=== PATIENT | male | born 1965 | race Caucasian/White ===

== ENCOUNTER 2018-01-06 22:47 | Inpatient (IN) | payer MEDICARE ==
[2018-01-06] MEDS ORDERED: Tetanus/Diphtheria Toxoids 0.5 ml Syringe IM ONE ×2 (23:38→23:44)
[2018-01-07] MEDS ORDERED: Vancomycin 1 gm/NS 200 ml 1 GM/200 ML BAG IVPB STA (00:53)
[2018-01-07 01:03] LABS: BASO % 0.6 % (0.0-2.0); EOS # 0.1 K/uL (0.0-0.7); EOS % 0.8 % (0.0-4.0); HEMOGLOBIN 13.5 g/dL (12.0-18.0); LYMPH # 1.2 K/uL (1.0-4.3); LYMPH % 19.5 % (20.0-40.0); MEAN CELL VOLUME 81.4 fL (80.0-94.0); MEAN CORPUSCULAR HEMOGLOBIN 27.8 pg (27.0-31.0); MEAN CORPUSCULAR HGB CONC 34.1 g/dL (33.0-37.0); MEAN PLATELET VOLUME 8.6 fL (7.2-11.7); MONO # 0.5 K/uL (0.0-0.8); MONO % 7.9 % (0.0-10.0); NEUT # 4.3 K/uL (1.8-7.0); NEUT % 71.2 % (50.0-75.0); RBC 4.85 Mil/uL (4.40-5.90); RED CELL DISTRIBUTION WIDTH 13.5 % (11.5-14.5)
[2018-01-07 01:12] LABS: ALBUMIN 4.3 g/dL (3.5-5.0); ALT/SGPT 34 U/L (21-72); AMYLASE 74 U/L (30-110); AST/SGOT 31 U/L (17-59); BLOOD UREA NITROGEN 16 mg/dL (9-20); CALCIUM 9.3 mg/dl (8.6-10.4); GFR AFRICAN-AMERICAN > 60; GFR NON-AFRICAN AMERICAN > 60; LIPASE 65 U/L (23-300)
[2018-01-07 01:55] LABS: BARBITURATES, UR NEGATIVE (NEGATIVE); BENZODIAZEPINES, UR NEGATIVE (NEGATIVE); OPIATES, UR NEGATIVE (NEGATIVE); PHENCYCLIDINE, UR NEGATIVE (NEGATIVE)
[2018-01-07 02:05] LABS: URINE BILIRUBIN NEGATIVE (NEGATIVE); URINE BLOOD NEGATIVE (NEGATIVE); URINE CLARITY Clear (Clear); URINE COLOR Yellow (YELLOW); URINE GLUCOSE (UA) NORMAL (Normal); URINE LEUKOCYTE ESTERASE NEG Leu/uL (Negative); URINE PROTEIN NEGATIVE (NEGATIVE); URINE UROBILINOGEN NORMAL mg/dL (0.2-1.0)
--- NOTE | 2018-01-07 02:09 | C.PDOC ---
History Of Present Illness Patient c/o right hand pain and swelling after he accidentally got a wooden splinter in his right hand that he was able to remove by pulling. However next day he developed pain and swelling that are getting worse. Patient has h/o HIV, currently has no PMD and is not on any treatment. Time Seen by Provider: 01/06/18 23:31 Chief Complaint (Nursing): Finger,Hand,&Wrist History Per: Patient Onset/Duration Of Symptoms: Days (3-4) Quality: Aching Pain Scale Rating Of: 5 Hands/Wrist (Pic): 1 - pain, swelling and erythema, mostly on the right 5th finger proximal phalanx 2 - swelling Past Medical History Reviewed: Historical Data, Nursing Documentation, Vital Signs Vital Signs: Last Vital Signs Temp 97.7 F 01/06/18 23:20 Pulse 93 H 01/06/18 23:20 Resp 18 01/06/18 23:20 BP 129/76 01/06/18 23:20 Pulse Ox 97 01/07/18 02:38 - Medical History PMH: Fractures, HIV Denies: Chronic Kidney Disease Family History: States: Unknown Family Hx - Social History Hx Tobacco Use: Yes Hx Alcohol Use: Yes Hx Substance Use: No - Immunization History Hx Tetanus Toxoid Vaccination: No Hx Influenza Vaccination: No Hx Pneumococcal Vaccination: No Review Of Systems Except As Marked, All Systems Reviewed And Found Negative. Physical Exam - Physical Exam Appears: Well, Non-toxic, No Acute Distress Skin: Normal Color, Warm, No Diaphoretic Head: Atraumatic, Normacephalic Eye(s): bilateral: Normal Inspection Neck: Normal, Normal ROM Cardiovascular: Rhythm Regular Respiratory: Normal Breath Sounds Gastrointestinal/Abdominal: Soft, No Tenderness Extremity: Swelling (right hand, proximal 5th finger, puncture wound palmar web between 4th and 5th digits, erythema, spreads proximally to the R hand area, decreased bending to the right 5th finger) Neurological/Psych: Oriented x3, Normal Speech, Normal Cognition ED Course And Treatment - Laboratory Results Result Diagrams: 01/07/18 00:54 01/07/18 00:54 O2 Sat by Pulse Oximetry: 97 - Radiology CXR: Interpreted by Me CXR Interpretation: Yes: No Acute Disease - Other Rad Right hand xray X-Ray: Interpreted by Me Interpretation: No acute finding Progress Note: Vancomycin IV started. TD IM given. Case was d/w Hospitalist workers compensation claims examiner Dr. Celso Gloria who accepted patient to [place] for an admission and IV antibiotics. Disposition - Disposition Disposition Time: 02:36 Condition: FAIR - Clinical Impression Clinical Impression: Cellulitis of hand, HIV (human immunodeficiency virus infection) Decision To Admit - Pt Status Changed To: Hospital Disposition Of: Inpatient - Admit Certification Admit to Inpatient:: After my assessment, the patient will require hospitalization for at least two midnights. This is because of the severity of symptoms shown, intensity of services needed, and/or the medical risk in this patient being treated as an outpatient. - InPatient: Physician Admission Certification: I certify that this patient requires 2 or more midnights of care for the following reason:: Patient will need more than 2 days of IV antibiotics. - . Bed Request Type: Regular Admitting Physician: Celso Gloria Patient Diagnosis: Cellulitis of hand, HIV (human immunodeficiency virus infection)
[2018-01-07] MEDS ORDERED: Piperacillin/Tazobact 3.375 GM in Sodium Chloride 100 ML IVPB SCH (03:45)
--- NOTE | 2018-01-07 03:46 | CP.PCM.HP ---
<JeanniedarrionYolande HeavenRolly - Last Filed: 01/07/18 03:39> History of Present Illness - History of Present Illness History of Present Illness: HPI: Patient is a 52 year old male with a history of HIV and schizophrenia, who presents to the ED with right hand swelling. Patient reports he had a splinter in his left hand 2 days ago. He pulled the splinter out and had slight pain and erythema at the splinter site. Patient says that after using a hammer yesterday , his hand began to swell and the pain at the splinter site increased. He describes the pain as sharp and stabbing. Patient states he has limited motion of his hand and fingers due to the pain and swelling. Patient states he has chronic back pain and a chronic nonproductive cough. Patient denies chest pain, shortness of breath, abdominal pain, n/v, fevers, chills, headaches, dizziness, diarrhea, constipation, rashes, leg pain/swelling. 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 Allergies: NKDA Medications: none Present on Admission - Present on Admission Any Indicators Present on Admission: No Review of Systems - Constitutional Constitutional: absent: Chills, Fever, Headache, Weakness - EENT Eyes: absent: Change in Vision Ears: absent: Dizziness - Cardiovascular Cardiovascular: absent: Chest Pain, Dyspnea, Leg Edema, Palpitations - Respiratory Respiratory: Cough (chronic). absent: Dyspnea - Gastrointestinal Gastrointestinal: absent: Abdominal Pain, Constipation, Diarrhea, Nausea, Vomiting - Genitourinary Genitourinary: absent: Dysuria, Hematuria, Urinary Frequency - Musculoskeletal Musculoskeletal: Back Pain (Chronic) - Integumentary Integumentary: Swelling (right hand- swelling, erythema, decreased ROM 2/2 pain ; ) - Neurological Neurological: absent: Dizziness, Headaches - Psychiatric Psychiatric: absent: Auditory Hallucinations, Hallucinations, Homicidal Ideation , Suicidal Ideation, Visual Hallucinations - Endocrine Endocrine: absent: Palpitations Past Patient History - Infectious Disease Hx of Infectious Diseases: None - Past Medical History & Family History Past Medical History?: Yes - Past Social History Smoking Status: Heavy Smoker > 10 Cigarettes Daily - CARDIAC Hx Cardiac Disorders: No - PULMONARY Hx Respiratory Disorders: No - NEUROLOGICAL Hx Neurological Disorder: No - HEENT Hx HEENT Problems: No - RENAL Hx Chronic Kidney Disease: No - ENDOCRINE/METABOLIC Hx Endocrine Disorders: No - HEMATOLOGICAL/ONCOLOGICAL Hx Blood Disorders: Yes Hx Human Immunodeficiency Virus (HIV): Yes - INTEGUMENTARY Hx Dermatological Problems: No - MUSCULOSKELETAL/RHEUMATOLOGICAL Hx Musculoskeletal Disorders: Yes Hx Fractures: Yes - GASTROINTESTINAL Hx Gastrointestinal Disorders: No - GENITOURINARY/GYNECOLOGICAL Hx Genitourinary Disorders: No - PSYCHIATRIC Hx Psychophysiologic Disorder: No Hx Substance Use: No - SURGICAL HISTORY Hx Surgeries: No - ANESTHESIA Hx Anesthesia: No Hx Anesthesia Reactions: No Hx Malignant Hyperthermia: No Has any member of the family had a problem w/ anesthesia?: No Meds Allergies/Adverse Reactions: Allergies Allergy/AdvReac Type Severity Reaction Status Date / Time No Known Allergies Allergy Verified 01/06/18 23:22 Physical Exam - Constitutional Appears: No Acute Distress - Head Exam Head Exam: ATRAUMATIC, NORMAL INSPECTION - Eye Exam Eye Exam: EOMI. absent: Scleral icterus Pupil Exam: Miosis - ENT Exam ENT Exam: Mucous Membranes Moist - Respiratory Exam Respiratory Exam: Prolonged Expiratory Phase, Wheezes (mild, diffuse), NORMAL BREATHING PATTERN. absent: Respiratory Distress - Cardiovascular Exam Cardiovascular Exam: REGULAR RHYTHM, +S1, +S2 - GI/Abdominal Exam GI & Abdominal Exam: Normal Bowel Sounds, Soft. absent: Distended, Firm, Tenderness - Extremities Exam Extremities exam: Positive for: tenderness (right hand- medial dorsal and palmar erythema, swelling, tenderness w/palpation, decreased ROM 2/2 pain), pedal pulses present. Negative for: pedal edema - Neurological Exam Neurological exam: Alert, Oriented x3 - Psychiatric Exam Psychiatric exam: Normal Affect, Normal Mood - Skin Skin Exam: Dry, Intact, Warm Results - Vital Signs Recent Vital Signs: Last Vital Signs Temp 98.6 F 01/07/18 03:15 Pulse 66 01/07/18 03:15 Resp 18 01/07/18 03:15 BP 125/59 L 01/07/18 03:15 Pulse Ox 98 01/07/18 03:15 - Labs Result Diagrams: 01/07/18 00:54 01/07/18 00:54 Labs: Laboratory Results - last 24 hr 01/07/18 01/07/18 01/07/18 00:54 00:54 01:35 WBC 6.0 RBC 4.85 Hgb 13.5 Hct 39.5 MCV 81.4 MCH 27.8 MCHC 34.1 RDW 13.5 Plt Count 82 L D MPV 8.6 Neut % (Auto) 71.2 Lymph % (Auto) 19.5 L [place] % (Auto) 7.9 Eos % (Auto) 0.8 Baso % (Auto) 0.6 Neut # (Auto) 4.3 Lymph # (Auto) 1.2 [place] # (Auto) 0.5 Eos # (Auto) 0.1 Baso # (Auto) 0.0 Sodium 145 Potassium 3.8 Chloride 106 Carbon Dioxide 26 Anion Gap 17 BUN 16 Creatinine 1.1 Est GFR ( Amer) > 60 Est GFR (Non-Af Amer) > 60 Random Glucose 84 Calcium 9.3 Magnesium 2.1 Total Bilirubin 1.0 AST 31 ALT 34 Alkaline Phosphatase 60 Lactate Dehydrogenase 487 Total Protein 8.6 H Albumin 4.3 Globulin 4.2 H Albumin/Globulin Ratio 1.0 Amylase 74 Lipase 65 Urine Color Yellow Urine Clarity Clear Urine pH 5.0 Ur Specific [place] 1.030 Urine Protein Negative Urine Glucose (UA) Normal Urine Ketones Negative Urine Blood Negative Urine Nitrate Negative Urine Bilirubin Negative Urine Urobilinogen Normal Ur Leukocyte Esterase Neg Urine WBC (Auto) 1 Urine RBC (Auto) < 1 Urine Opiates Screen Urine Methadone Screen Ur Barbiturates Screen Ur Phencyclidine Scrn Ur Amphetamines Screen U Benzodiazepines Scrn U Oth Cocaine Metabols U Cannabinoids Screen 01/07/18 01:35 WBC RBC Hgb Hct MCV MCH MCHC RDW Plt Count MPV Neut % (Auto) Lymph % (Auto) [place] % (Auto) Eos % (Auto) Baso % (Auto) Neut # (Auto) Lymph # (Auto) [place] # (Auto) Eos # (Auto) Baso # (Auto) Sodium Potassium Chloride Carbon Dioxide Anion Gap BUN Creatinine Est GFR ( Amer) Est GFR (Non-Af Amer) Random Glucose Calcium Magnesium Total Bilirubin AST ALT Alkaline Phosphatase Lactate Dehydrogenase Total Protein Albumin Globulin Albumin/Globulin Ratio Amylase Lipase Urine Color Urine Clarity Urine pH Ur Specific [place] Urine Protein Urine Glucose (UA) Urine Ketones Urine Blood Urine Nitrate Urine Bilirubin Urine Urobilinogen Ur Leukocyte Esterase Urine WBC (Auto) Urine RBC (Auto) Urine Opiates Screen Negative Urine Methadone Screen Negative Ur Barbiturates Screen Negative Ur Phencyclidine Scrn Negative Ur Amphetamines Screen Negative U Benzodiazepines Scrn Negative U Oth Cocaine Metabols Positive H U Cannabinoids Screen Negative Assessment & Plan (1) Cellulitis of hand Assessment and Plan: Right hand cellulitis Hand xray: f/u results Blood cx: f/u results In Ed: given one dose of toradol, vancomycin 1gm IV, tetanus vaccination Zosyn 3.375gm IV Q6h (active 01/07/18) Vancomycin 1gm IV Q24h (active 01/08/18) Tylenol PRN for mild pain, Toradol 15mg IV prn for moderate pain NS@75mls/hr Status: Acute (2) HIV (human immunodeficiency virus infection) Assessment and Plan: Hx of HIV (dx in 1991); no previous treatment; previously followed in an HIV clinic, stopped going many years ago. Viral load: f/u results Lymphocyte: f/u results Status: Acute (3) Schizophrenia Assessment and Plan: Hx of schizophrenia. No treatment/medications taken at this time because patient states they make him drowsy. Does not have a PMD or psychiatrist. States his auditory hallucinations are controlled when he stays busy; patient does not like to talk about his schizophrenia; patient has auditory hallucinations ~Q 2 weeks. Status: Acute (4) Tobacco abuse Assessment and Plan: Nicoderm patch Status: Acute (5) Prophylactic measure Assessment and Plan: DVT: SCDs, chemical anticoagulation C/I due to thrombocytopenia GI: Pepcid Regular diet Status: Acute <Celso Gloria - Last Filed: 01/07/18 06:28> Results - Vital Signs Recent Vital Signs: Last Vital Signs Temp 98.4 F 01/07/18 04:00 Pulse 75 01/07/18 04:00 Resp 18 01/07/18 04:00 BP 128/70 01/07/18 04:00 Pulse Ox 97 01/07/18 04:00 - Labs Result Diagrams: 01/07/18 00:54 01/07/18 00:54 Labs: Laboratory Results - last 24 hr 01/07/18 01/07/18 01/07/18 00:54 00:54 01:35 WBC 6.0 RBC 4.85 Hgb 13.5 Hct 39.5 MCV 81.4 MCH 27.8 MCHC 34.1 RDW 13.5 Plt Count 82 L D MPV 8.6 Neut % (Auto) 71.2 Lymph % (Auto) 19.5 L [place] % (Auto) 7.9 Eos % (Auto) 0.8 Baso % (Auto) 0.6 Neut # (Auto) 4.3 Lymph # (Auto) 1.2 [place] # (Auto) 0.5 Eos # (Auto) 0.1 Baso # (Auto) 0.0 Differential Comment Sodium 145 Potassium 3.8 Chloride 106 Carbon Dioxide 26 Anion Gap 17 BUN 16 Creatinine 1.1 Est GFR ( Amer) > 60 Est GFR (Non-Af Amer) > 60 Random Glucose 84 Calcium 9.3 Magnesium 2.1 Total Bilirubin 1.0 AST 31 ALT 34 Alkaline Phosphatase 60 Lactate Dehydrogenase 487 Total Protein 8.6 H Albumin 4.3 Globulin 4.2 H Albumin/Globulin Ratio 1.0 Amylase 74 Lipase 65 Urine Color Yellow Urine Clarity Clear Urine pH 5.0 Ur Specific [place] 1.030 Urine Protein Negative Urine Glucose (UA) Normal Urine Ketones Negative Urine Blood Negative Urine Nitrate Negative Urine Bilirubin Negative Urine Urobilinogen Normal Ur Leukocyte Esterase Neg Urine WBC (Auto) 1 Urine RBC (Auto) < 1 Urine Opiates Screen Urine Methadone Screen Ur Barbiturates Screen Ur Phencyclidine Scrn Ur Amphetamines Screen U Benzodiazepines Scrn U Oth Cocaine Metabols U Cannabinoids Screen 01/07/18 01:35 WBC RBC Hgb Hct MCV MCH MCHC RDW Plt Count MPV Neut % (Auto) Lymph % (Auto) [place] % (Auto) Eos % (Auto) Baso % (Auto) Neut # (Auto) Lymph # (Auto) [place] # (Auto) Eos # (Auto) Baso # (Auto) Differential Comment Sodium Potassium Chloride Carbon Dioxide Anion Gap BUN Creatinine Est GFR ( Amer) Est GFR (Non-Af Amer) Random Glucose Calcium Magnesium Total Bilirubin AST ALT Alkaline Phosphatase Lactate Dehydrogenase Total Protein Albumin Globulin Albumin/Globulin Ratio Amylase Lipase Urine Color Urine Clarity Urine pH Ur Specific [place] Urine Protein Urine Glucose (UA) Urine Ketones Urine Blood Urine Nitrate Urine Bilirubin Urine Urobilinogen Ur Leukocyte Esterase Urine WBC (Auto) Urine RBC (Auto) Urine Opiates Screen Negative Urine Methadone Screen Negative Ur Barbiturates Screen Negative Ur Phencyclidine Scrn Negative Ur Amphetamines Screen Negative U Benzodiazepines Scrn Negative U Oth Cocaine Metabols Positive H U Cannabinoids Screen Negative Assessment & Plan - Date & Time Date: 01/07/18 (I have seen and examined the patient. I agree with the findings and plan of care as documented by Dr. Collins. Patient with cellulitis of right hand. History of HIV. Check Viral load. Currently not following up with anyone for this issue. Vanco and Zosyn for now. Check blood cultures. Monitor for acute changes. Consider ID consult if no improvement.) Time: 06:26 Attending/Attestation - Attestation I have personally seen and examined this patient.: Yes I have fully participated in the care of the patient.: Yes I have reviewed all pertinent clinical information: Yes
[2018-01-07] MEDS: Sodium Chloride 0.9% 1,000 ML IV SCH ×2 (04:09→16:50)
[2018-01-07] MEDS: Piperacill/Tazo 3.375gm in Dex 3.375 GM/50 ML BAG IVPB SCH ×4 (05:35→23:36)
[2018-01-07 08:08] VITALS: RESP 20
--- NOTE | 2018-01-07 09:01 | RAD ---
PROCEDURE: CHEST RADIOGRAPH, 1 VIEW HISTORY: hand infection/HIV COMPARISON: 12/01/2016 FINDINGS: LUNGS: Clear. PLEURA: No pneumothorax or pleural fluid seen. CARDIOVASCULAR: Normal. OSSEOUS STRUCTURES: No significant abnormalities. VISUALIZED UPPER ABDOMEN: Normal. OTHER FINDINGS: None. IMPRESSION: No active disease.
--- NOTE | 2018-01-07 09:03 | RAD ---
PROCEDURE: Right Hand Radiographs. HISTORY: hand injury COMPARISON: None. FINDINGS: BONES: Normal. No fracture. JOINTS: Normal. No osteoarthritic changes. SOFT TISSUES: Normal. OTHER FINDINGS: None. IMPRESSION: Normal right hand radiographs.
[2018-01-07] MEDS: Vancomycin 1 gm/NS 200 ml 1 GM/200 ML BAG IVPB SCH ×2 (12:12→23:40)
--- NOTE | 2018-01-07 15:31 | CP.PCM.PN ---
<Emre Sarah - Last Filed: 01/07/18 15:28> Subjective - Date & Time of Evaluation Date of Evaluation: 01/07/18 Time of Evaluation: 09:05 - Subjective Subjective: Patient seen and examined at bedside. Patient still complaints of pain and swelling of left hand. Currently patient denies of fever, chills, headache, shortness of breath, chest pain, nausea, or vomiting. Objective - Vital Signs/Intake and Output Vital Signs (last 24 hours): Temp Pulse Resp BP Pulse Ox 9726 F H 76 20 107/68 97 01/07/18 08:05 01/07/18 08:05 01/07/18 08:05 01/07/18 08:05 01/07/18 08:05 - Medications Medications: Current Medications Acetaminophen (Tylenol 325mg Tab) 650 mg PO Q6 PRN PRN Reason: Pain, Mild (1-3) Famotidine (Pepcid) 20 mg PO BID [facility] Last Admin: 01/07/18 10:05 Dose: 20 mg Sodium Chloride (Sodium Chloride 0.9%) 1,000 mls @ 75 mls/hr IV .[id number] [facility] Last Admin: 01/07/18 04:09 Dose: 75 mls/hr Piperacillin Sod/Tazobactam Sod (Zosyn 3.375 Gm Iv Premix) 3.375 gm in 50 mls @ 100 mls/hr IVPB Q6H [facility] PRN Reason: Protocol Last Admin: 01/07/18 11:15 Dose: 100 mls/hr Vancomycin/Sodium Chloride (Vancomycin 1 Gm/Ns 200 Ml) 1 gm in 200 mls @ 133.333 mls/hr IVPB Q12H [facility] PRN Reason: Protocol Last Admin: 01/07/18 12:12 Dose: 133.333 mls/hr Ketorolac Tromethamine (Toradol) 15 mg IV Q6 PRN PRN Reason: Pain, moderate (4-7) Last Admin: 01/07/18 11:30 Dose: 15 mg Nicotine (Nicoderm Cq) 1 patch TD DAILY [facility] Last Admin: 01/07/18 10:05 Dose: 1 patch Pneumococcal Polyvalent Vaccine (Pneumovax 23 Vaccine) 0.5 ml IM .ONCE ONE Stop: 01/09/18 10:01 - Labs Labs: 01/07/18 00:54 01/07/18 00:54 - Constitutional Appears: No Acute Distress - Eye Exam Eye Exam: EOMI, Normal appearance - ENT Exam ENT Exam: Mucous Membranes Moist - Respiratory Exam Respiratory Exam: Wheezes. absent: Respiratory Distress - Cardiovascular Exam Cardiovascular Exam: REGULAR RHYTHM, +S1, +S2 - GI/Abdominal Exam GI & Abdominal Exam: Soft, Normal Bowel Sounds. absent: Tenderness - Extremities Exam Additional comments: Right hand swelling and erythema, wound site located at the webbing of 4th and 5th digits, limited range of motion of fingers due to pain and swelling - Neurological Exam Neurological Exam: Alert, Awake, Oriented x3 - Psychiatric Exam Psychiatric exam: Normal Affect, Normal Mood - Skin Skin Exam: Warm Assessment and Plan - Assessment and Plan (Free Text) Assessment: Cellulitis of right hand -No leukocytosis, afebrile -Hand xray unremarkable -Pending blood culture -Continue Zosyn 3.375gm IV Q6h (active 01/07/18) -Continue Vancomycin 1gm IV Q12h (active 01/08/18) -Tylenol PRN for mild pain, Toradol 15mg IV prn for moderate pain -NS@75mls/hr -ID consult, Dr. Lugo help appreciated -Hand surgery, Dr. Steven help appreciated HIV -Hx of HIV (dx in 1991); no previous treatment; previously followed in an HIV clinic, stopped going many years ago -Follow up Viral load and Lymphocyte -ID consult, Dr. Lugo help appreciated Hx of Schizophrenia -Controlled without medication Tobacco abuse -Nicoderm patch Prophylactic measures -Pepcid -SCD Case discussed with Dr. Locke <Sandro Locke - Last Filed: 01/07/18 17:24> Objective - Vital Signs/Intake and Output Vital Signs (last 24 hours): Temp Pulse Resp BP Pulse Ox 97.5 F L 74 20 118/76 97 01/07/18 15:00 01/07/18 15:00 01/07/18 15:00 01/07/18 15:00 01/07/18 15:00 - Medications Medications: Current Medications Acetaminophen (Tylenol 325mg Tab) 650 mg PO Q6 PRN PRN Reason: Pain, Mild (1-3) Famotidine (Pepcid) 20 mg PO BID [facility] Last Admin: 01/07/18 10:05 Dose: 20 mg Sodium Chloride (Sodium Chloride 0.9%) 1,000 mls @ 75 mls/hr IV .[id number] [facility] Last Admin: 01/07/18 04:09 Dose: 75 mls/hr Piperacillin Sod/Tazobactam Sod (Zosyn 3.375 Gm Iv Premix) 3.375 gm in 50 mls @ 100 mls/hr IVPB Q6H [facility] PRN Reason: Protocol Last Admin: 01/07/18 11:15 Dose: 100 mls/hr Vancomycin/Sodium Chloride (Vancomycin 1 Gm/Ns 200 Ml) 1 gm in 200 mls @ 133.333 mls/hr IVPB Q12H [facility] PRN Reason: Protocol Last Admin: 01/07/18 12:12 Dose: 133.333 mls/hr Ketorolac Tromethamine (Toradol) 15 mg IV Q6 PRN PRN Reason: Pain, moderate (4-7) Last Admin: 01/07/18 11:30 Dose: 15 mg Nicotine (Nicoderm Cq) 1 patch TD DAILY [facility] Last Admin: 01/07/18 10:05 Dose: 1 patch Pneumococcal Polyvalent Vaccine (Pneumovax 23 Vaccine) 0.5 ml IM .ONCE ONE Stop: 01/09/18 10:01 - Labs Labs: 01/07/18 00:54 01/07/18 00:54 Attending/Attestation - Attestation I have personally seen and examined this patient.: Yes I have fully participated in the care of the patient.: Yes I have reviewed all pertinent clinical information, including history, physical exam and plan: Yes Notes (Text): Patient was seen and examined. Has pain and swelling of the right hand. He removed a wood piece from his hand ? .He is afebrile and no leukocytosis(HIV pt), x ray normal follow blood culture Continue Zosyn 3.375gm IV Q6h and Vancomycin. Patient has history of HIV. not on HAART and not following a physician follow viral load and CD4 count. follow ID consult, Dr. Lugo and Hand surgery, Dr. Steven d/w the resident. Agree with the documentation
--- NOTE | 2018-01-07 18:46 | CP.PCM.CON ---
History of Present Illness - History of Present Illness History of Present Illness: SURGERY CONSULT NOTE FOR DR. LOUEI 52M presents with right hand pain that began 4 days ago. 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 He states he attempted to pull it out but got out much less than he felt went inside his hand. Since then he has been having pain and swelling at the site that is getting much worse. He state he does have full sensation but feel a stabbing, sharp shooting pain in his hand. Denies fevers and chills. PMH: HIV, schizophrenia PSH: denies Social: admits to tobacco, alcohol, and crack cocaine which he used yesterday Allergies: NKDA Past Patient History - Infectious Disease Hx of Infectious Diseases: None - Past Medical History & Family History Past Medical History?: Yes - Past Social History Smoking Status: Heavy Smoker > 10 Cigarettes Daily - CARDIAC Hx Cardiac Disorders: No - PULMONARY Hx Respiratory Disorders: No - NEUROLOGICAL Hx Neurological Disorder: No - HEENT Hx HEENT Problems: No - RENAL Hx Chronic Kidney Disease: No - ENDOCRINE/METABOLIC Hx Endocrine Disorders: No - HEMATOLOGICAL/ONCOLOGICAL Hx Blood Disorders: Yes Hx Human Immunodeficiency Virus (HIV): Yes - INTEGUMENTARY Hx Dermatological Problems: No - MUSCULOSKELETAL/RHEUMATOLOGICAL Hx Falls: No - GASTROINTESTINAL Hx Gastrointestinal Disorders: No - GENITOURINARY/GYNECOLOGICAL Hx Genitourinary Disorders: No - PSYCHIATRIC Hx Substance Use: Yes (cocaine) - SURGICAL HISTORY Hx Surgeries: No - ANESTHESIA Hx Anesthesia: No Hx Anesthesia Reactions: No Hx Malignant Hyperthermia: No Has any member of the family had a problem w/ anesthesia?: No Meds Allergies/Adverse Reactions: Allergies Allergy/AdvReac Type Severity Reaction Status Date / Time No Known Allergies Allergy Verified 01/06/18 23:22 - Medications Medications: Current Medications Acetaminophen (Tylenol 325mg Tab) 650 mg PO Q6 PRN PRN Reason: Pain, Mild (1-3) Famotidine (Pepcid) 20 mg PO BID [facility] Last Admin: 01/07/18 17:48 Dose: 20 mg Sodium Chloride (Sodium Chloride 0.9%) 1,000 mls @ 75 mls/hr IV .[id number] [facility] Last Admin: 01/07/18 04:09 Dose: 75 mls/hr Piperacillin Sod/Tazobactam Sod (Zosyn 3.375 Gm Iv Premix) 3.375 gm in 50 mls @ 100 mls/hr IVPB Q6H [facility] PRN Reason: Protocol Last Admin: 01/07/18 17:49 Dose: 100 mls/hr Vancomycin/Sodium Chloride (Vancomycin 1 Gm/Ns 200 Ml) 1 gm in 200 mls @ 133.333 mls/hr IVPB Q12H [facility] PRN Reason: Protocol Last Admin: 01/07/18 12:12 Dose: 133.333 mls/hr Ketorolac Tromethamine (Toradol) 15 mg IV Q6 PRN PRN Reason: Pain, moderate (4-7) Last Admin: 01/07/18 11:30 Dose: 15 mg Nicotine (Nicoderm Cq) 1 patch TD DAILY [facility] Last Admin: 01/07/18 10:05 Dose: 1 patch Pneumococcal Polyvalent Vaccine (Pneumovax 23 Vaccine) 0.5 ml IM .ONCE ONE Stop: 01/09/18 10:01 Physical Exam - Constitutional Appears: Non-toxic, No Acute Distress - Eye Exam Eye Exam: EOMI, PERRL - ENT Exam ENT Exam: Mucous Membranes Moist - Respiratory Exam Respiratory Exam: Clear to Auscultation Bilateral, NORMAL BREATHING PATTERN - Cardiovascular Exam Cardiovascular Exam: REGULAR RHYTHM, +S1, +S2 - GI/Abdominal Exam GI & Abdominal Exam: Soft. absent: Distended, Firm, Guarding, Rebound, Rigid, Tenderness - Extremities Exam Additional comments: Right hand- 5th digit is swollen, base of 5th digit is also swollen on both dorsal and palmar aspect, Area is also warm and erythematous in nature. Patient has full sensation and range of motion is limited only due to pain. - Neurological Exam Neurological exam: Alert, Oriented x3 - Psychiatric Exam Psychiatric exam: Normal Affect, Normal Mood - Skin Skin Exam: Dry, Intact, Normal Color, Warm Results - Vital Signs Recent Vital Signs: Last Vital Signs Temp 97.5 F L 01/07/18 15:00 Pulse 74 01/07/18 15:00 Resp 20 01/07/18 15:00 BP 118/76 01/07/18 15:00 Pulse Ox 97 01/07/18 15:00 - Labs Result Diagrams: 01/07/18 00:54 01/07/18 00:54 Labs: Laboratory Results - last 24 hr 01/07/18 01/07/18 01/07/18 00:54 00:54 01:35 WBC 6.0 RBC 4.85 Hgb 13.5 Hct 39.5 MCV 81.4 MCH 27.8 MCHC 34.1 RDW 13.5 Plt Count 82 L D MPV 8.6 Neut % (Auto) 71.2 Lymph % (Auto) 19.5 L [place] % (Auto) 7.9 Eos % (Auto) 0.8 Baso % (Auto) 0.6 Neut # (Auto) 4.3 Lymph # (Auto) 1.2 [place] # (Auto) 0.5 Eos # (Auto) 0.1 Baso # (Auto) 0.0 Differential Comment Sodium 145 Potassium 3.8 Chloride 106 Carbon Dioxide 26 Anion Gap 17 BUN 16 Creatinine 1.1 Est GFR ( Amer) > 60 Est GFR (Non-Af Amer) > 60 Random Glucose 84 Calcium 9.3 Magnesium 2.1 Total Bilirubin 1.0 AST 31 ALT 34 Alkaline Phosphatase 60 Lactate Dehydrogenase 487 Total Protein 8.6 H Albumin 4.3 Globulin 4.2 H Albumin/Globulin Ratio 1.0 Amylase 74 Lipase 65 Urine Color Yellow Urine Clarity Clear Urine pH 5.0 Ur Specific Anthony 1.030 Urine Protein Negative Urine Glucose (UA) Normal Urine Ketones Negative Urine Blood Negative Urine Nitrate Negative Urine Bilirubin Negative Urine Urobilinogen Normal Ur Leukocyte Esterase Neg Urine WBC (Auto) 1 Urine RBC (Auto) < 1 Vancomycin Trough Urine Opiates Screen Urine Methadone Screen Ur Barbiturates Screen Ur Phencyclidine Scrn Ur Amphetamines Screen U Benzodiazepines Scrn U Oth Cocaine Metabols U Cannabinoids Screen 01/07/18 01/07/18 01:35 11:25 WBC RBC Hgb Hct MCV MCH MCHC RDW Plt Count MPV Neut % (Auto) Lymph % (Auto) [place] % (Auto) Eos % (Auto) Baso % (Auto) Neut # (Auto) Lymph # (Auto) [place] # (Auto) Eos # (Auto) Baso # (Auto) Differential Comment Sodium Potassium Chloride Carbon Dioxide Anion Gap BUN Creatinine Est GFR ( Amer) Est GFR (Non-Af Amer) Random Glucose Calcium Magnesium Total Bilirubin AST ALT Alkaline Phosphatase Lactate Dehydrogenase Total Protein Albumin Globulin Albumin/Globulin Ratio Amylase Lipase Urine Color Urine Clarity Urine pH Ur Specific Anthony Urine Protein Urine Glucose (UA) Urine Ketones Urine Blood Urine Nitrate Urine Bilirubin Urine Urobilinogen Ur Leukocyte Esterase Urine WBC (Auto) Urine RBC (Auto) Vancomycin Trough 5.2 Urine Opiates Screen Negative Urine Methadone Screen Negative Ur Barbiturates Screen Negative Ur Phencyclidine Scrn Negative Ur Amphetamines Screen Negative U Benzodiazepines Scrn Negative U Oth Cocaine Metabols Positive H U Cannabinoids Screen Negative Assessment & Plan - Assessment and Plan (Free Text) Assessment: 52M with right hand swelling and cellulitis likely 2/2 to retained foreign body Plan: - continue IVF and antibiotics - monitor for increase in swelling or loss of sensation Further recs discuss with Dr. Maurizio Pugh, PGY2
[2018-01-08] MEDS: Piperacill/Tazo 3.375gm in Dex 3.375 GM/50 ML BAG IVPB SCH ×2 (05:20→11:25)
--- NOTE | 2018-01-08 07:43 | CP.PCM.PN ---
Subjective - Date & Time of Evaluation Date of Evaluation: 01/08/18 Time of Evaluation: 06:50 - Subjective Subjective: Hand surgery progress note. Dr. Steven PT seen and examined at bedside. No acute events overnight. No F/C. States that the right hand swelling improved slightly. NO new complaints. Objective - Vital Signs/Intake and Output Vital Signs (last 24 hours): Temp Pulse Resp BP Pulse Ox 97.6 F 68 20 134/74 96 01/08/18 07:28 01/08/18 07:28 01/08/18 07:28 01/08/18 07:28 01/08/18 07:28 Intake and Output: 01/08/18 01/08/18 06:59 18:59 Intake Total 1340 Balance 1340 - Medications Medications: Current Medications Acetaminophen (Tylenol 325mg Tab) 650 mg PO Q6 PRN PRN Reason: Pain, Mild (1-3) Famotidine (Pepcid) 20 mg PO BID [facility] Last Admin: 01/07/18 17:48 Dose: 20 mg Sodium Chloride (Sodium Chloride 0.9%) 1,000 mls @ 75 mls/hr IV .[id number] [facility] Last Admin: 01/07/18 16:50 Dose: 75 mls/hr Piperacillin Sod/Tazobactam Sod (Zosyn 3.375 Gm Iv Premix) 3.375 gm in 50 mls @ 100 mls/hr IVPB Q6H [facility] PRN Reason: Protocol Last Admin: 01/08/18 05:20 Dose: 100 mls/hr Vancomycin/Sodium Chloride (Vancomycin 1 Gm/Ns 200 Ml) 1 gm in 200 mls @ 133.333 mls/hr IVPB Q12H [facility] PRN Reason: Protocol Last Admin: 01/07/18 23:40 Dose: 133.333 mls/hr Ketorolac Tromethamine (Toradol) 15 mg IV Q6 PRN PRN Reason: Pain, moderate (4-7) Last Admin: 01/08/18 04:30 Dose: 15 mg Nicotine (Nicoderm Cq) 1 patch TD DAILY [facility] Last Admin: 01/07/18 10:05 Dose: 1 patch Pneumococcal Polyvalent Vaccine (Pneumovax 23 Vaccine) 0.5 ml IM .ONCE ONE Stop: 01/09/18 10:01 - Labs Labs: 01/07/18 00:54 03/18/18 00:54 - Constitutional Appears: Well, Non-toxic, No Acute Distress - Head Exam Head Exam: ATRAUMATIC, NORMAL INSPECTION, NORMOCEPHALIC - Eye Exam Eye Exam: EOMI, Normal appearance - ENT Exam ENT Exam: Mucous Membranes Moist - Respiratory Exam Respiratory Exam: NORMAL BREATHING PATTERN. absent: Accessory Muscle Use, Respiratory Distress - Cardiovascular Exam Cardiovascular Exam: RRR. absent: JVD - GI/Abdominal Exam GI & Abdominal Exam: Soft. absent: Firm, Guarding, Rigid, Tenderness - Extremities Exam Additional comments: right hand mild swelling, mild erythema. small puncture wound site at the base of the 5th digit. No active bleeding or drainage. - Neurological Exam Neurological Exam: Alert, Awake, Oriented x3 Assessment and Plan - Assessment and Plan (Free Text) Assessment: 52yo M with Right hand cellulitis. Plan: - No indication for hand surgery intervention at this time - Continue Abx as per ID - Continue to monitor for signs of worsening infection - Warm Betadine soaks Further recs as per Dr. Maurizio Mathew PGY1 surgery pager: [phone]
--- NOTE | 2018-01-08 08:30 | CP.PCM.PN ---
Subjective - Date & Time of Evaluation Date of Evaluation: 01/08/18 Time of Evaluation: 07:50 - Subjective Subjective: Medicine progress note for Dr. Bowling Patient seen and examined. Patient states that his right hand swelling has not improved yet. He still experiences varying burning and electrical pain in the skin overlying the area proximal to the 4th MCP joint on the right hand. Patient has no other acute complaints at this time. He used to follow up in an HIV clinic on [facility] in [place] with last visit being 5 years ago. He has not taken HIV medications since 1994. Objective - Vital Signs/Intake and Output Vital Signs (last 24 hours): Temp Pulse Resp BP Pulse Ox 97.6 F 68 20 134/74 96 01/08/18 07:28 01/08/18 07:28 01/08/18 07:28 01/08/18 07:28 01/08/18 07:28 Intake and Output: 01/08/18 01/08/18 06:59 18:59 Intake Total 1340 Balance 1340 - Medications Medications: Current Medications Acetaminophen (Tylenol 325mg Tab) 650 mg PO Q6 PRN PRN Reason: Pain, Mild (1-3) Famotidine (Pepcid) 20 mg PO BID [facility] Last Admin: 01/07/18 17:48 Dose: 20 mg Sodium Chloride (Sodium Chloride 0.9%) 1,000 mls @ 75 mls/hr IV .[id number] [facility] Last Admin: 01/07/18 16:50 Dose: 75 mls/hr Piperacillin Sod/Tazobactam Sod (Zosyn 3.375 Gm Iv Premix) 3.375 gm in 50 mls @ 100 mls/hr IVPB Q6H [facility] PRN Reason: Protocol Last Admin: 01/08/18 05:20 Dose: 100 mls/hr Vancomycin/Sodium Chloride (Vancomycin 1 Gm/Ns 200 Ml) 1 gm in 200 mls @ 133.333 mls/hr IVPB Q12H [facility] PRN Reason: Protocol Last Admin: 01/07/18 23:40 Dose: 133.333 mls/hr Ketorolac Tromethamine (Toradol) 15 mg IV Q6 PRN PRN Reason: Pain, moderate (4-7) Last Admin: 01/08/18 04:30 Dose: 15 mg Nicotine (Nicoderm Cq) 1 patch TD DAILY [facility] Last Admin: 01/07/18 10:05 Dose: 1 patch Pneumococcal Polyvalent Vaccine (Pneumovax 23 Vaccine) 0.5 ml IM .ONCE ONE Stop: 01/09/18 10:01 - Labs Labs: 01/07/18 00:54 01/07/18 00:54 - Additional Findings Additional findings: - Constitutional Appears: No Acute Distress - Head Exam Head Exam: ATRAUMATIC, NORMAL INSPECTION - Eye Exam Eye Exam: EOMI, Normal appearance. absent: Scleral icterus - ENT Exam ENT Exam: Mucous Membranes Moist - Respiratory Exam Respiratory Exam: Clear to Auscultation Bilateral, NORMAL BREATHING PATTERN. absent: Respiratory Distress - Cardiovascular Exam Cardiovascular Exam: REGULAR RHYTHM, +S1, +S2 - GI/Abdominal Exam GI & Abdominal Exam: Normal Bowel Sounds, Soft. absent: Distended, Firm, Tenderness - Extremities Exam Extremities exam: Positive for: tenderness (right hand- medial ventral, swelling , tenderness w/palpation, decreased ROM secondary to pain and swelling), pedal pulses present. Negative for: pedal edema - Neurological Exam Neurological exam: Alert, Oriented x3 - Psychiatric Exam Psychiatric exam: Normal Affect, Normal Mood - Skin Skin Exam: Dry, Intact, Warm Assessment and Plan - Assessment and Plan (Free Text) Plan: Cellulitis of hand Right hand cellulitis Hand xray: negative Blood cx: f/u results In Ed: given one dose of toradol, vancomycin 1gm IV, tetanus vaccination Zosyn 3.375gm IV Q6h (active 01/07/18) Vancomycin 1gm IV Q24h (active 01/08/18) Tylenol PRN for mild pain, Toradol 15mg IV prn for moderate pain NS@75mls/hr ID consult, Dr. Lugo, help appreciated HIV (human immunodeficiency virus infection) Hx of HIV (dx in 1991); no previous treatment; previously followed in an HIV clinic, stopped going many years ago. Viral load: f/u results Lymphocyte: f/u results f/u HIV 4th generation and f/u ID recommendations Patient has not had follow up for the past 5 years for HIV. Has not taken any HIV medications since 1994. Schizophrenia Hx of schizophrenia. No treatment/medications taken at this time because patient states they make him drowsy. Does not have a PMD or psychiatrist. States his auditory hallucinations are controlled when he stays busy; patient does not like to talk about his schizophrenia; patient has auditory hallucinations ~Q 2 weeks. Tobacco abuse Nicoderm patch Prophylactic measure DVT: SCDs, chemical anticoagulation C/I due to thrombocytopenia GI: Pepcid Regular diet Disposition: Discharge pending HIV status and ID recommendations. Discussed with Dr. Tawnya Caal PGY-1
[2018-01-08 08:53] LABS: BASO % 0.5 % (0.0-2.0); EOS # 0.1 K/uL (0.0-0.7); EOS % 2.6 % (0.0-4.0); HEMOGLOBIN 11.5 g/dL (12.0-18.0); LYMPH # 1.1 K/uL (1.0-4.3); LYMPH % 24.6 % (20.0-40.0); MEAN CELL VOLUME 82.5 fL (80.0-94.0); MEAN CORPUSCULAR HEMOGLOBIN 27.6 pg (27.0-31.0); MEAN CORPUSCULAR HGB CONC 33.5 g/dL (33.0-37.0); MEAN PLATELET VOLUME 9.3 fL (7.2-11.7); MONO # 0.4 K/uL (0.0-0.8); MONO % 8.7 % (0.0-10.0); NEUT # 2.9 K/uL (1.8-7.0); NEUT % 63.6 % (50.0-75.0); RBC 4.17 Mil/uL (4.40-5.90); RED CELL DISTRIBUTION WIDTH 13.8 % (11.5-14.5); WHITE BLOOD COUNT 4.6 K/uL (4.8-10.8)
[2018-01-08 09:10] LABS: ALB/GLOB RATIO 0.9 (1.0-2.1); ALBUMIN 3.3 g/dL (3.5-5.0); ALT/SGPT 33 U/L (21-72); AST/SGOT 24 U/L (17-59); BLOOD UREA NITROGEN 14 mg/dL (9-20); CALCIUM 8.2 mg/dl (8.6-10.4); GFR AFRICAN-AMERICAN > 60; GFR NON-AFRICAN AMERICAN > 60
[2018-01-08] MEDS ORDERED: Vancomycin 1 gm/NS 200 ml 1 GM/200 ML BAG IVPB SCH (10:00)
[2018-01-08] MEDS: Vancomycin 1 gm/NS 200 ml 1 GM/200 ML BAG IVPB SCH (11:26)
--- NOTE | 2018-01-08 16:00 | CP.PCM.CON ---
History of Present Illness - History of Present Illness History of Present Illness: dictated Past Patient History - Infectious Disease Hx of Infectious Diseases: None - Past Medical History & Family History Past Medical History?: Yes - Past Social History Smoking Status: Heavy Smoker > 10 Cigarettes Daily - CARDIAC Hx Cardiac Disorders: No - PULMONARY Hx Respiratory Disorders: No - NEUROLOGICAL Hx Neurological Disorder: No - HEENT Hx HEENT Problems: No - RENAL Hx Chronic Kidney Disease: No - ENDOCRINE/METABOLIC Hx Endocrine Disorders: No - HEMATOLOGICAL/ONCOLOGICAL Hx Blood Disorders: Yes Hx Human Immunodeficiency Virus (HIV): Yes - INTEGUMENTARY Hx Dermatological Problems: No - MUSCULOSKELETAL/RHEUMATOLOGICAL Hx Falls: No - GASTROINTESTINAL Hx Gastrointestinal Disorders: No - GENITOURINARY/GYNECOLOGICAL Hx Genitourinary Disorders: No - PSYCHIATRIC Hx Substance Use: Yes (cocaine) - SURGICAL HISTORY Hx Surgeries: No - ANESTHESIA Hx Anesthesia: No Hx Anesthesia Reactions: No Hx Malignant Hyperthermia: No Has any member of the family had a problem w/ anesthesia?: No Meds Allergies/Adverse Reactions: Allergies Allergy/AdvReac Type Severity Reaction Status Date / Time No Known Allergies Allergy Verified 01/06/18 23:22 - Medications Medications: Current Medications Acetaminophen (Tylenol 325mg Tab) 650 mg PO Q6 PRN PRN Reason: Pain, Mild (1-3) Famotidine (Pepcid) 20 mg PO BID [facility] Last Admin: 01/08/18 11:21 Dose: 20 mg Sodium Chloride (Sodium Chloride 0.9%) 1,000 mls @ 75 mls/hr IV .[id number] [facility] Last Admin: 01/07/18 16:50 Dose: 75 mls/hr Piperacillin Sod/Tazobactam Sod (Zosyn 3.375 Gm Iv Premix) 3.375 gm in 50 mls @ 100 mls/hr IVPB Q6H [facility] PRN Reason: Protocol Last Admin: 01/08/18 11:25 Dose: 100 mls/hr Vancomycin/Sodium Chloride (Vancomycin 1 Gm/Ns 200 Ml) 1 gm in 200 mls @ 133.333 mls/hr IVPB Q12H [facility] PRN Reason: Protocol Last Admin: 01/08/18 11:26 Dose: 133.333 mls/hr Ketorolac Tromethamine (Toradol) 15 mg IV Q6 PRN PRN Reason: Pain, moderate (4-7) Last Admin: 01/08/18 04:30 Dose: 15 mg Nicotine (Nicoderm Cq) 1 patch TD DAILY [facility] Last Admin: 01/08/18 11:21 Dose: 1 patch Pneumococcal Polyvalent Vaccine (Pneumovax 23 Vaccine) 0.5 ml IM .ONCE ONE Stop: 01/09/18 10:01 Results - Vital Signs Recent Vital Signs: Last Vital Signs Temp 97.6 F 01/08/18 07:28 Pulse 68 01/08/18 07:28 Resp 20 01/08/18 07:28 BP 134/74 01/08/18 07:28 Pulse Ox 96 01/08/18 07:28 - Labs Result Diagrams: 01/08/18 08:38 01/08/18 08:38 Labs: Laboratory Results - last 24 hr 01/08/18 01/08/18 08:38 08:38 WBC 4.6 L RBC 4.17 L Hgb 11.5 L D Hct 34.4 L MCV 82.5 MCH 27.6 MCHC 33.5 RDW 13.8 Plt Count 74 L MPV 9.3 Neut % (Auto) 63.6 Lymph % (Auto) 24.6 [place] % (Auto) 8.7 Eos % (Auto) 2.6 Baso % (Auto) 0.5 Neut # (Auto) 2.9 Lymph # (Auto) 1.1 [place] # (Auto) 0.4 Eos # (Auto) 0.1 Baso # (Auto) 0.0 Sodium 144 Potassium 3.8 Chloride 111 H Carbon Dioxide 23 Anion Gap 13 BUN 14 Creatinine 1.0 Est GFR ( Amer) > 60 Est GFR (Non-Af Amer) > 60 Random Glucose 113 H Calcium 8.2 L Total Bilirubin 0.7 AST 24 ALT 33 Alkaline Phosphatase 93 Total Protein 6.8 Albumin 3.3 L D Globulin 3.5 Albumin/Globulin Ratio 0.9 L
--- NOTE | 2018-01-08 16:20 | CP.PCM.DIS ---
<Jerome Caal - Last Filed: 01/08/18 16:34> Provider - Provider Date of Admission: 01/07/18 02:35 Attending physician: Omero Bowling DO Consults: Surgery: Dr. Jordan Steven Infectious Diseases: Dr. Elizabeth Lugo Time Spent in preparation of Discharge (in minutes): 40 Diagnosis - Discharge Diagnosis (1) Cellulitis of hand Status: Acute Priority: High (2) HIV (human immunodeficiency virus infection) Status: Chronic Priority: High (3) Tobacco abuse Status: Chronic Priority: Low (4) Schizophrenia Status: Chronic Priority: Low Hospital Course - Lab Results Lab Results: Micro Results 01/07/18 01:23 Blood Blood Culture - Preliminary NO GROWTH AFTER 24 HOURS 01/07/18 00:50 Blood Blood Culture - Preliminary NO GROWTH AFTER 24 HOURS Most Recent Lab Values WBC 4.6 K/uL (4.8-10.8) L 01/08/18 08:38 RBC 4.17 Mil/uL (4.40-5.90) L 01/08/18 08:38 Hgb 11.5 g/dL (12.0-18.0) L D 01/08/18 08:38 Hct 34.4 % (35.0-51.0) L 01/08/18 08:38 MCV 82.5 fL (80.0-94.0) 01/08/18 08:38 MCH 27.6 pg (27.0-31.0) 01/08/18 08:38 MCHC 33.5 g/dL (33.0-37.0) 01/08/18 08:38 RDW 13.8 % (11.5-14.5) 01/08/18 08:38 Plt Count 74 K/uL (130-400) L 01/08/18 08:38 MPV 9.3 fL (7.2-11.7) 01/08/18 08:38 Neut % (Auto) 63.6 % (50.0-75.0) 01/08/18 08:38 Lymph % (Auto) 24.6 % (20.0-40.0) 01/08/18 08:38 Bollinger % (Auto) 8.7 % (0.0-10.0) 01/08/18 08:38 Eos % (Auto) 2.6 % (0.0-4.0) 01/08/18 08:38 Baso % (Auto) 0.5 % (0.0-2.0) 01/08/18 08:38 Neut # (Auto) 2.9 K/uL (1.8-7.0) 01/08/18 08:38 Lymph # (Auto) 1.1 K/uL (1.0-4.3) 01/08/18 08:38 Bollinger # (Auto) 0.4 K/uL (0.0-0.8) 01/08/18 08:38 Eos # (Auto) 0.1 K/uL (0.0-0.7) 01/08/18 08:38 Baso # (Auto) 0.0 K/uL (0.0-0.2) 01/08/18 08:38 Differential Comment 01/07/18 00:54 Sodium 144 mmol/L (132-148) 01/08/18 08:38 Potassium 3.8 mmol/L (3.6-5.2) 01/08/18 08:38 Chloride 111 mmol/L (98-107) H 01/08/18 08:38 Carbon Dioxide 23 mmol/L (22-30) 01/08/18 08:38 Anion Gap 13 (10-20) 01/08/18 08:38 BUN 14 mg/dL (9-20) 01/08/18 08:38 Creatinine 1.0 mg/dL (0.8-1.5) 01/08/18 08:38 Est GFR ( Amer) > 60 01/08/18 08:38 Est GFR (Non-Af Amer) > 60 01/08/18 08:38 Random Glucose 113 mg/dL (75-110) H 01/08/18 08:38 Calcium 8.2 mg/dl (8.6-10.4) L 01/08/18 08:38 Magnesium 2.1 mg/dL (1.6-2.3) 01/07/18 00:54 Total Bilirubin 0.7 mg/dL (0.2-1.3) 01/08/18 08:38 AST 24 U/L (17-59) 01/08/18 08:38 ALT 33 U/L (21-72) 01/08/18 08:38 Alkaline Phosphatase 93 U/L (38-126) 01/08/18 08:38 Lactate Dehydrogenase 487 U/L (313-618) 01/07/18 00:54 Total Protein 6.8 g/dL (6.3-8.3) 01/08/18 08:38 Albumin 3.3 g/dL (3.5-5.0) L D 01/08/18 08:38 Globulin 3.5 gm/dL (2.2-3.9) 01/08/18 08:38 Albumin/Globulin Ratio 0.9 (1.0-2.1) L 01/08/18 08:38 Amylase 74 U/L (30-110) 01/07/18 00:54 Lipase 65 U/L (23-300) 01/07/18 00:54 Urine Color Yellow (YELLOW) 01/07/18 01:35 Urine Clarity Clear (Clear) 01/07/18 01:35 Urine pH 5.0 (5.0-8.0) 01/07/18 01:35 Ur Specific [place] 1.030 (1.003-1.030) 01/07/18 01:35 Urine Protein Negative mg/dL (NEGATIVE) 01/07/18 01:35 Urine Glucose (UA) Normal mg/dL (Normal) 01/07/18 01:35 Urine Ketones Negative mg/dL (NEGATIVE) 01/07/18 01:35 Urine Blood Negative (NEGATIVE) 01/07/18 01:35 Urine Nitrate Negative (NEGATIVE) 01/07/18 01:35 Urine Bilirubin Negative (NEGATIVE) 01/07/18 01:35 Urine Urobilinogen Normal mg/dL (0.2-1.0) 01/07/18 01:35 Ur Leukocyte Esterase Neg Kieran/uL (Negative) 01/07/18 01:35 Urine WBC (Auto) 1 /hpf (0-5) 01/07/18 01:35 Urine RBC (Auto) < 1 /hpf (0-3) 01/07/18 01:35 Vancomycin Trough 5.2 ug/mL (5.0-10.0) 01/07/18 11:25 Urine Opiates Screen Negative (NEGATIVE) 01/07/18 01:35 Urine Methadone Screen Negative (NEGATIVE) 01/07/18 01:35 Ur Barbiturates Screen Negative (NEGATIVE) 01/07/18 01:35 Ur Phencyclidine Scrn Negative (NEGATIVE) 01/07/18 01:35 Ur Amphetamines Screen Negative (NEGATIVE) 01/07/18 01:35 U Benzodiazepines Scrn Negative (NEGATIVE) 01/07/18 01:35 U Oth Cocaine Metabols Positive (NEGATIVE) H 01/07/18 01:35 U Cannabinoids Screen Negative (NEGATIVE) 01/07/18 01:35 - Hospital Course Hospital Course: Initial Note: Patient is a 52 year old male with a history of HIV and schizophrenia, who presents to the ED with right hand swelling. Patient reports he had a splinter in his left hand 2 days ago. He pulled the splinter out and had slight pain and erythema at the splinter site. Patient says that after using a hammer yesterday , his hand began to swell and the pain at the splinter site increased. He describes the pain as sharp and stabbing. Patient states he has limited motion of his hand and fingers due to the pain and swelling. Patient states he has chronic back pain and a chronic nonproductive cough. Patient denies chest pain, shortness of breath, abdominal pain, n/v, fevers, chills, headaches, dizziness, diarrhea, constipation, rashes, leg pain/swelling. Hospital Course: Patient admitted for evaluation of right hand swelling with suspected cellulitis due to foreign body entrapment. Hand surgeon Dr. Jordan Steven was consulted. Hand x-rays were unremarkable. No acute intervention by surgery on this admission. Patient was covered on Vancomycin and Zosyn during his time in the hospital. He also received a tetanus shot. Patient was also seen by infectious disease specialist Dr. Lugo. Per her recommendation, patient discharged with 10 day course of Levaquin and instructions to follow up if it is worsening. Patient is to follow up with Dr. Lugo in her office about his HIV studies that were drawn on this admission as he has not seen an HIV specialist in 5 years. Patient was also instructed to follow up at the outpatient office of Dr. Steven and with primary as well. This is a summary of the hospital course. For more information, refer to the medical records. Discharge Exam - Additional Findings Additional findings: - Constitutional Appears: No Acute Distress - Head Exam Head Exam: ATRAUMATIC, NORMAL INSPECTION - Eye Exam Eye Exam: EOMI, Normal appearance. absent: Scleral icterus - ENT Exam ENT Exam: Mucous Membranes Moist - Respiratory Exam Respiratory Exam: Clear to Auscultation Bilateral, NORMAL BREATHING PATTERN. absent: Respiratory Distress - Cardiovascular Exam Cardiovascular Exam: REGULAR RHYTHM, +S1, +S2 - GI/Abdominal Exam GI & Abdominal Exam: Normal Bowel Sounds, Soft. absent: Distended, Firm, Tenderness - Extremities Exam Extremities exam: Positive for: tenderness (right hand- medial ventral, swelling , tenderness w/palpation, decreased ROM secondary to pain and swelling), pedal pulses present. Negative for: pedal edema - Neurological Exam Neurological exam: Alert, Oriented x3 - Psychiatric Exam Psychiatric exam: Normal Affect, Normal Mood - Skin Skin Exam: Dry, Intact, Warm Discharge Plan - Discharge Medications Prescriptions: levoFLOXacin [Levaquin] 500 mg PO DAILY #10 tab - Follow Up Plan Condition: STABLE Disposition: HOME/ ROUTINE Instructions: Levofloxacin (Systemic), HIV/AIDS (DC), Schizophrenia (DC), Cellulitis (DC) Additional Instructions: Please take Levaquin 500 mg once a day for 10 days. Please follow soak your hands in warm water regularly. Please keep your right arm elevated to allow the swelling to go down. Please follow up with Dr. Lugo, the infectious disease/HIV specialist within 1-2 weeks to go over your HIV bloodwork. Please follow up with the hand surgeon Dr. Steven within 1 week. Please follow up with a primary doctor within 1 week as well. If symptoms worsen or you develop new symptoms, please go to the nearest emergency room. Referrals: [facility] at [facility] [Outside] Skip Steven MD [Staff Provider] - Merle Lugo MD [Staff Provider] - <Omero Bowling - Last Filed: 01/08/18 18:14> Provider - Provider Date of Admission: 01/07/18 02:35 Attending physician: Omero Bowling DO Hospital Course - Lab Results Lab Results: Micro Results 01/07/18 01:23 Blood Blood Culture - Preliminary NO GROWTH AFTER 24 HOURS 01/07/18 00:50 Blood Blood Culture - Preliminary NO GROWTH AFTER 24 HOURS Most Recent Lab Values WBC 4.6 K/uL (4.8-10.8) L 01/08/18 08:38 RBC 4.17 Mil/uL (4.40-5.90) L 01/08/18 08:38 Hgb 11.5 g/dL (12.0-18.0) L D 01/08/18 08:38 Hct 34.4 % (35.0-51.0) L 01/08/18 08:38 MCV 82.5 fL (80.0-94.0) 01/08/18 08:38 MCH 27.6 pg (27.0-31.0) 01/08/18 08:38 MCHC 33.5 g/dL (33.0-37.0) 01/08/18 08:38 RDW 13.8 % (11.5-14.5) 01/08/18 08:38 Plt Count 74 K/uL (130-400) L 01/08/18 08:38 MPV 9.3 fL (7.2-11.7) 01/08/18 08:38 Neut % (Auto) 63.6 % (50.0-75.0) 01/08/18 08:38 Lymph % (Auto) 24.6 % (20.0-40.0) 01/08/18 08:38 Bollinger % (Auto) 8.7 % (0.0-10.0) 01/08/18 08:38 Eos % (Auto) 2.6 % (0.0-4.0) 01/08/18 08:38 Baso % (Auto) 0.5 % (0.0-2.0) 01/08/18 08:38 Neut # (Auto) 2.9 K/uL (1.8-7.0) 01/08/18 08:38 Lymph # (Auto) 1.1 K/uL (1.0-4.3) 01/08/18 08:38 Bollinger # (Auto) 0.4 K/uL (0.0-0.8) 01/08/18 08:38 Eos # (Auto) 0.1 K/uL (0.0-0.7) 01/08/18 08:38 Baso # (Auto) 0.0 K/uL (0.0-0.2) 01/08/18 08:38 Differential Comment 01/07/18 00:54 Sodium 144 mmol/L (132-148) 01/08/18 08:38 Potassium 3.8 mmol/L (3.6-5.2) 01/08/18 08:38 Chloride 111 mmol/L (98-107) H 01/08/18 08:38 Carbon Dioxide 23 mmol/L (22-30) 01/08/18 08:38 Anion Gap 13 (10-20) 01/08/18 08:38 BUN 14 mg/dL (9-20) 01/08/18 08:38 Creatinine 1.0 mg/dL (0.8-1.5) 01/08/18 08:38 Est GFR ( Amer) > 60 01/08/18 08:38 Est GFR (Non-Af Amer) > 60 01/08/18 08:38 Random Glucose 113 mg/dL (75-110) H 01/08/18 08:38 Calcium 8.2 mg/dl (8.6-10.4) L 01/08/18 08:38 Magnesium 2.1 mg/dL (1.6-2.3) 01/07/18 00:54 Total Bilirubin 0.7 mg/dL (0.2-1.3) 01/08/18 08:38 AST 24 U/L (17-59) 01/08/18 08:38 ALT 33 U/L (21-72) 01/08/18 08:38 Alkaline Phosphatase 93 U/L (38-126) 01/08/18 08:38 Lactate Dehydrogenase 487 U/L (313-618) 01/07/18 00:54 Total Protein 6.8 g/dL (6.3-8.3) 01/08/18 08:38 Albumin 3.3 g/dL (3.5-5.0) L D 01/08/18 08:38 Globulin 3.5 gm/dL (2.2-3.9) 01/08/18 08:38 Albumin/Globulin Ratio 0.9 (1.0-2.1) L 01/08/18 08:38 Amylase 74 U/L (30-110) 01/07/18 00:54 Lipase 65 U/L (23-300) 01/07/18 00:54 Urine Color Yellow (YELLOW) 01/07/18 01:35 Urine Clarity Clear (Clear) 01/07/18 01:35 Urine pH 5.0 (5.0-8.0) 01/07/18 01:35 Ur Specific [place] 1.030 (1.003-1.030) 01/07/18 01:35 Urine Protein Negative mg/dL (NEGATIVE) 01/07/18 01:35 Urine Glucose (UA) Normal mg/dL (Normal) 01/07/18 01:35 Urine Ketones Negative mg/dL (NEGATIVE) 01/07/18 01:35 Urine Blood Negative (NEGATIVE) 01/07/18 01:35 Urine Nitrate Negative (NEGATIVE) 01/07/18 01:35 Urine Bilirubin Negative (NEGATIVE) 01/07/18 01:35 Urine Urobilinogen Normal mg/dL (0.2-1.0) 01/07/18 01:35 Ur Leukocyte Esterase Neg Kieran/uL (Negative) 01/07/18 01:35 Urine WBC (Auto) 1 /hpf (0-5) 01/07/18 01:35 Urine RBC (Auto) < 1 /hpf (0-3) 01/07/18 01:35 Vancomycin Trough 5.2 ug/mL (5.0-10.0) 01/07/18 11:25 Urine Opiates Screen Negative (NEGATIVE) 01/07/18 01:35 Urine Methadone Screen Negative (NEGATIVE) 01/07/18 01:35 Ur Barbiturates Screen Negative (NEGATIVE) 01/07/18 01:35 Ur Phencyclidine Scrn Negative (NEGATIVE) 01/07/18 01:35 Ur Amphetamines Screen Negative (NEGATIVE) 01/07/18 01:35 U Benzodiazepines Scrn Negative (NEGATIVE) 01/07/18 01:35 U Oth Cocaine Metabols Positive (NEGATIVE) H 01/07/18 01:35 U Cannabinoids Screen Negative (NEGATIVE) 01/07/18 01:35 Attending/Attestation - Attestation I have personally seen and examined this patient.: Yes I have fully participated in the care of the patient.: Yes I have reviewed all pertinent clinical information, including history, physical exam and plan: Yes Notes (Text): Medical attending: Patient was seen and examined by me. Agree with the above note by the resident The patient will be discharged today. He understands he will need to take PO abx. He also needs to follow up with the [facility] as well as with infectious disease The patient has a history of HIV - and I had a long discussion with him about this. We kim CD4/CD8 studies, HIV viral load studies this morning. He explains to me that he has not taken medication for HIV since 1994 and he does NOT want to be on medications. He denied weightloss So I explained to him that by him not takeing HIV medication that he's places himself at greater risk from infections that could otherwise be avoided or delt with easier with IV abx. He says he understands, but still does not want to take HIV medications thank you Omero Bowling
[2018-01-08 16:49] VITALS: BP 132/78; PULSE 84; TEMP 98.5; O2SAT 98
[2018-01-08] MEDS ORDERED: Pneumococcal 23-Valent Vaccine IM ONE (17:15)
[2018-01-08] MEDS ORDERED: Influenza Vaccine 60 mcg/0.5 mL SYR (4YR UP) IM ONE (17:15)
--- NOTE | 2018-01-09 07:49 | CON ---
DATE: INFECTIOUS DISEASE CONSULTATION REQUESTED BY: Dr. Omero Bowling. HISTORY OF PRESENT ILLNESS: This patient is a 52-year-old male. He has history of HIV and schizophrenia. He was working with wood and a splinter went into to his hand. He comes in with a right hand swelling. The splinter went in his right hand 2 days ago, and he pulled it out and was having pain. He has pain around the second metatarsal base and swelling extended to the right hand, and he was using a hammer. Splinter he took it out and says that after using hammer, the hand began to swell up again, and the pain at the splinter site increased and described pain as sharp and stabbing. He ended up coming here. He was seen by the Surgery who cleared him, and I am asked to evaluate for antibiotic at home. He has he has been on vancomycin and Zosyn. He denies any nausea, vomiting. No fevers, no chills. He still complains of shooting pain in the hand but he tells me that the x-ray was negative. He denies any chest pain. No shortness of breath. No nausea, vomiting, diarrhea, headaches, dizziness, or any other problems. The main problem is this. However, he is HIV positive, but he is not taking any medications. He said he was having reactions to the medication, and I told him that there are multiple combinations that can be used, and he needs to be seen as an outpatient at an HIV Clinic or if he wants to follow in my office. PAST MEDICAL HISTORY: Significant for HIV and schizophrenia. He denies any previous history. FAMILY HISTORY: No family history. SOCIAL HISTORY: Significant for smoking 40 packs per year. Denies EtOH abuse. He also snorts cocaine and denies IV drug abuse. Lives in [place] with a roommate. 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 ALLERGIES: HE IS NOT ALLERGIC TO ANY MEDICINE. MEDICATIONS: He takes no medications. REVIEW OF SYSTEMS: Constitutionally, no chills. No fever. No headache. No weakness. No eye, nose, throat symptoms. Denies any chest pain. No dyspnea. No leg pain. No palpitations. Respiratory: He does have chronic cough because he is a smoker. Denies any shortness of breath. Denies any nausea, vomiting, diarrhea, or constipation. No urinary symptoms of dysuria, hematuria or frequency. Musculoskeletal: No back pain and has swelling in the right hand with edema extending to the right forearm with decreased range of movement, and erythema. The erythema has decreased a lot but still swelling persists. Denies any neurological problems. He has psych issues of schizophrenia. He has no endocrine issues reported, and past medical history is unremarkable except for being a smoker and substance abuse and HIV positive and schizophrenia. He says, he had many times pneumonia in the past, and he really needs to be seen as outpatient. PHYSICAL EXAMINATION: VITAL SIGNS: I find his temperature, T-max 98.5, pulse 84, blood pressure 132/78, respirations are 20. HEENT: Head is atraumatic, normocephalic. Pupils are reacting to light. Eye movements are unremarkable. NECK: Supple. JVP is flat. He is a thin-built male. LUNGS: Clear. No crackles or rales present. HEART: S1, S2 regular. No murmurs appreciated. ABDOMEN: Soft, nontender. No guarding, no rigidity present. EXTREMITIES: Have no edema, clubbing, or cyanosis. The right hand is swollen with diffuse edema and it is extending to the middle of the forearm, but has tenderness in the dorsum area of it. LABORATORY DATA: Labs are noted. Labs show white count is 4.6, hemoglobin 11.5, hematocrit 34.4, platelet count is 74, chlorides are 111. BUN is 14, creatinine is 1.0. His sugar was 113. UA is negative. He did have cocaine positive. My impression is that he had x-ray done, and the chest x-ray is negative, and the hand x-ray was done which shows a normal right hand radiographs. IMPRESSION: He had like a splinter which was almost like a puncture wound to his right hand and came in with diffuse swelling of his right hand which seems to have improved with IV antibiotics, but since he is on vancomycin and Zosyn which cannot be given at this time, we decided to give him Levaquin for 7 days to 10 days, and if he continues to have pain and swelling, to keep his hand elevated, and he was also instructed to follow in an HIV Clinic so that he could be started on a better medication to prevent further complications of HIV related , he listened but was not ready for it, so we he will need outpatient workup. He is going to go home today. Merle Lugo MD
[2018-01-09 17:04] LABS: % CD4 (T HELPER CELL) 18 Percent (30-61); % CD8 (SUPPRESSOR T CELL) 68 Percent (12-42); ABSOLUTE CD3 CELLS 1132 Cells/mcL (840-3060); ABSOLUTE CD4 CELLS 231 Cells/mcL (490-1740); ABSOLUTE CD8 CELLS 889 Cells/mcL (180-1170); ABSOLUTE LYMPHOCYTES 1312 Cells/mcL (850-3900); HELPER/SUPPRESSOR RATIO 0.26 Ratio (0.86-5.00)
== END 2018-01-08 18:37 | disposition home or self-care (01) | DRG 602 ==
LOC: C.ER 22:47 → C.9E 01-07 02:35 → C.3T 01-07 03:03
PROVIDERS: ADMIT Hospitalist; ATTEND Hospitalist
DX: L03.113 Cellulitis of right upper limb (principal); B20 Human immunodeficiency virus [HIV] disease; D69.6 Thrombocytopenia, unspecified; F14.90 Cocaine use, unspecified, uncomplicated; F20.9 Schizophrenia, unspecified; G89.29 Other chronic pain; S60.551A Superficial foreign body of right hand, initial encounter; S60.552A Superficial foreign body of left hand, initial encounter; W45.8XXA Other foreign body or object entering through skin, initial encounter; Z59.0 Homelessness; F17.210 Nicotine dependence, cigarettes, uncomplicated

== ENCOUNTER 2018-04-08 04:30 | Emergency (ER) | payer MEDICARE ==
[2018-04-08 05:23] VITALS: O2SAT 96
--- NOTE | 2018-04-08 06:13 | C.PDOC ---
History Of Present Illness 52 year old male presents to the ED c/o pain and swelling to the left middle finger for the past 2 weeks. Patient reports he is not sure if he injured his finger and is requesting an X-Ray while in the ED. Patient denies injury, fall, trauma, weakness, numbness, rash, fever, chills. Time Seen by Provider: 04/08/18 05:35 Chief Complaint (Nursing): Abnormal Skin Integrity History Per: Patient History/Exam Limitations: no limitations Onset/Duration Of Symptoms: Days Current Symptoms Are (Timing): Still Present Location Of Injury: Right: Hand Quality Of Symptoms: Painful, Swollen Recent travel outside of the [place]: No Additional History Per: Patient Past Medical History Reviewed: Historical Data, Nursing Documentation, Vital Signs Vital Signs: Last Vital Signs Temp 98.1 F 04/08/18 04:51 Pulse 70 04/08/18 04:51 Resp 20 04/08/18 04:51 BP 117/71 04/08/18 04:51 Pulse Ox 96 04/08/18 07:05 - Medical History PMH: Fractures, HIV Denies: Chronic Kidney Disease Surgical History: No Surg Hx Family History: States: Unknown Family Hx - Social History Hx Tobacco Use: Yes Hx Alcohol Use: Yes Hx Substance Use: Yes (cocaine) - Immunization History Hx Tetanus Toxoid Vaccination: No Hx Influenza Vaccination: No Hx Pneumococcal Vaccination: No Review Of Systems Constitutional: Negative for: Fever, Chills Respiratory: Negative for: Cough, Shortness of Breath Gastrointestinal: Negative for: Nausea, Vomiting Musculoskeletal: Positive for: Hand Pain Skin: Negative for: Rash Physical Exam - Physical Exam Appears: Non-toxic, No Acute Distress Skin: Normal Color, Warm, Dry Head: Atraumatic, Normacephalic Eye(s): bilateral: Normal Inspection Oral Mucosa: Moist Neck: Normal ROM, Supple Extremity: Normal ROM, Tenderness (left middle finger ), Capillary Refill (< 2 seconds), Swelling (left middle finger), Other (left middle finger questionable fluctuant at nailbed of 3rd) Extremity: Bilateral: Atraumatic, Normal Color And Temperature Pulses: Left Radial: Normal, Right Radial: Normal Neurological/Psych: Oriented x3, Normal Speech Gait: Steady ED Course And Treatment O2 Sat by Pulse Oximetry: 96 (On RA) Pulse Ox Interpretation: Normal Progress Note: Plan: - Motrin 600 mg PO. - Left hand X-Ray. On reassessment, patient is resting comfortably, and is in no acute distress. Patient was instructed to follow up with physician/clinic in 1-2 days for further evaluation Disposition Counseled Patient/Family Regarding: Diagnosis, Need For Followup, Rx Given - Disposition Referrals: [facility] [Outside] Disposition: HOME/ ROUTINE Disposition Time: 07:01 Condition: STABLE Additional Instructions: Please follow up with PMD Return to ER if worse Prescriptions: Cephalexin [cephalexin] 500 mg PO Q6 #28 cap Instructions: Paronychia (DC) Forms: [email or web address] (Korean) - Clinical Impression Clinical Impression: Paronychia of right middle finger - PA / AIRCRAFT LOG CLERK / Resident Statement MD/DO has reviewed & agrees with the documentation as recorded. - Scribe Statement The provider has reviewed the documentation as recorded by the Scribe Enoch Huerta All medical record entries made by the Scribe were at my direction and personally dictated by me. I have reviewed the chart and agree that the record accurately reflects my personal performance of the history, physical exam, medical decision making, and the department course for this patient. I have also personally directed, reviewed, and agree with the discharge instructions and disposition.
[2018-04-08 07:20] VITALS: BP 125/82; PULSE 64; RESP 18; TEMP 98.6
--- NOTE | 2018-04-08 09:48 | RAD ---
PROCEDURE: Left Hand Radiographs. HISTORY: pain, swelling COMPARISON: None. FINDINGS: BONES: Normal. No fracture. JOINTS: Normal. No osteoarthritic changes. SOFT TISSUES: Soft tissue swelling 3rd digit OTHER FINDINGS: None. IMPRESSION: Soft tissue swelling without acute articular or osseous abnormality. Concordant results with the preliminary interpretation rendered by the emergency department physician procedure.
== END 2018-04-08 07:17 | disposition home or self-care (01) ==
LOC: C.ER 04:30
DX: L03.011 Cellulitis of right finger (principal); Z72.0 Tobacco use

== ENCOUNTER 2018-04-09 01:25 | Emergency (ER) | payer MEDICARE ==
[2018-04-09 01:32] VITALS: BP 147/88; PULSE 76; RESP 18; TEMP 97.9; O2SAT 97
[2018-04-09] MEDS ORDERED: Tmp-Smz 800 mg-160 mg DS Tab PO STA (01:57)
[2018-04-09] MEDS ORDERED: Bacitracin 500 Units/gm Oint Foilpak UD ONE (02:00)
[2018-04-09] MEDS ORDERED: Bacitracin Ointment 30 GM TUBE TOP STA (02:01)
[2018-04-09] MEDS ORDERED: Tmp-Smz 800 mg-160 mg DS Tab ONE (02:09)
--- NOTE | 2018-04-09 02:15 | C.PDOC ---
History Of Present Illness 52 year old male presents to the ED c/o pain and swelling to his left middle finger for the past 4 days. Patient was seen in the ED yesterday for similar presentation, patient had X-Ray done and was discharged home with antibiotics which he did not filled yet. Today the patient came in stating his pain and swelling worsened. Patient denies fever, chills, discharge from the area, weakness, numbness. Time Seen by Provider: 04/09/18 01:32 Chief Complaint (Nursing): Finger,Hand,&Wrist History Per: Patient History/Exam Limitations: no limitations Onset/Duration Of Symptoms: Days (4) Quality: "Pain" Exacerbating Factor(s): Movement Recent travel outside of the [place]: No Additional History Per: Patient Past Medical History Reviewed: Historical Data, Nursing Documentation, Vital Signs Vital Signs: Last Vital Signs Temp 97.9 F 04/09/18 01:29 Pulse 76 04/09/18 01:29 Resp 18 04/09/18 01:29 BP 147/88 04/09/18 01:29 Pulse Ox 97 04/09/18 02:38 - Medical History PMH: Fractures, HIV Denies: Chronic Kidney Disease Surgical History: No Surg Hx Family History: States: Unknown Family Hx - Social History Hx Tobacco Use: Yes Hx Alcohol Use: Yes Hx Substance Use: Yes (cocaine) - Immunization History Hx Tetanus Toxoid Vaccination: No Hx Influenza Vaccination: No Hx Pneumococcal Vaccination: No Review Of Systems Constitutional: Negative for: Fever, Chills Cardiovascular: Negative for: Chest Pain Respiratory: Negative for: Cough Gastrointestinal: Negative for: Nausea, Vomiting Musculoskeletal: Positive for: Hand Pain Neurological: Negative for: Weakness, Numbness Physical Exam - Physical Exam Appears: Non-toxic, No Acute Distress Skin: Normal Color, Warm, Dry Head: Atraumatic, Normacephalic Eye(s): bilateral: Normal Inspection Neck: Normal ROM, Supple Extremity: Normal ROM, Tenderness (distal aspect of left 3rd finger), Capillary Refill (< 2 seconds), Swelling (moderate to distal aspect left 3rd finger around nailbed fluctuance), Other (fingers with old paint chips and stains, no erythema ) Pulses: Left Radial: Normal, Right Radial: Normal Neurological/Psych: Oriented x3, Normal Speech Gait: Steady ED Course And Treatment O2 Sat by Pulse Oximetry: 97 (ON RA) Pulse Ox Interpretation: Normal Progress Note: Plan: - Bacitracin 1 gm TOP. - Keflex 500 mg PO. - Motrin 600 mg PO. UTD with tetanus. On reassessment, patient is resting comfortably, and is in no acute distress. Patient was instructed to follow up with physician/ clinic in 1-2 days for further evaluation. - Incision & Drainage Of Abscess Used During Procedure: Continuous Pulse Oximetry Prep Used: Sterile Water, Betadine Procedure: Incised W/Scalpel Blade#:, Drained Pus, Irrigated Cavity W/Saline, Packed W/Gauze (bacitracin) Disposition - Disposition Referrals: [facility] [Outside] Disposition: HOME/ ROUTINE Disposition Time: 02:08 Condition: STABLE Additional Instructions: Apply bacitracin ointment Warm compress to area Wound check in 2 days Return to ER if worse Prescriptions: Ibuprofen [Motrin] 600 mg PO Q6H #20 tab Sulfamethoxazole/Trimethoprim [Bactrim DS 800 mg-160 mg] 1 tab PO BID #14 tab Instructions: Paronychia (DC) Forms: [employer] (Dutch) - Clinical Impression Clinical Impression: Paronychia of finger of left hand - 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 - Scribe Statement The provider has reviewed the documentation as recorded by the Scribe Enoch Huetra All medical record entries made by the Scribe were at my direction and personally dictated by me. I have reviewed the chart and agree that the record accurately reflects my personal performance of the history, physical exam, medical decision making, and the department course for this patient. I have also personally directed, reviewed, and agree with the discharge instructions and disposition.
== END 2018-04-09 02:20 | disposition home or self-care (01) ==
LOC: C.ER 01:25
DX: L03.012 Cellulitis of left finger (principal)

== ENCOUNTER 2018-11-11 08:47 | Emergency (ER) | payer SELFPAY, MEDICARE | END 2018-11-11 10:17 | disposition home or self-care (01) | LOC: C.ER 08:47 ==

== ENCOUNTER 2019-02-09 09:37 | Emergency (ER) | payer SELFPAY ==
[2019-02-09 09:41] VITALS: BMI 23.3
[2019-02-09 09:45] VITALS: RESP 16; TEMP 98.9
--- NOTE | 2019-02-09 10:32 | RAD ---
Date of service: 02/09/2019 HISTORY: Evaluate for pneumonia COMPARISON: No prior. TECHNIQUE: Chest PA and lateral FINDINGS: LINES AND TUBES: None. LUNG AND PLEURA: The lungs are hyperinflated and there is peribronchial thickening with chronic changes in both lungs. No focal consolidation. No pleural effusion or pneumothorax. HEART AND MEDIASTINUM: The heart is not enlarged. No aortic atherosclerotic calcifications present. The hilar and mediastinal contours are within normal limits. SKELETAL STRUCTURES: The bony structures are within normal limits for the patient's age. VISUALIZED UPPER ABDOMEN: Normal. OTHER FINDINGS: None. IMPRESSION: No active pulmonary disease. COPD.
--- NOTE | 2019-02-09 10:54 | C.PDOC ---
History Of Present Illness 53 year old male presents to the ED complaining of cough for one month. Reports associated occasional phlegm and sore throat when he coughs. States he has been a smoker for 40 years. Denies using inhalers. Denies fever, chills, chest pain, difficulty swallowing, shortness of breath, nausea, vomiting, or diarrhea. Time Seen by Provider: 02/09/19 10:15 Chief Complaint (Nursing): Cough, Cold, Congestion History Per: Patient History/Exam Limitations: no limitations Onset/Duration Of Symptoms: Days Current Symptoms Are (Timing): Still Present Location Of Pain: Throat Sick Contacts (Context): None Associated Symptoms: Cough. denies: Fever, Chills Past Medical History Reviewed: Historical Data, Nursing Documentation, Vital Signs Vital Signs: Last Vital Signs Temp 98.9 F 02/09/19 09:41 Pulse 89 02/09/19 09:41 Resp 16 02/09/19 09:41 BP 120/78 02/09/19 09:41 Pulse Ox 95 02/09/19 09:41 - Medical History PMH: Fractures, HIV (? pt denies) Denies: Chronic Kidney Disease Surgical History: No Surg Hx Family History: States: No Known Family Hx - Social History Hx Tobacco Use: Yes Hx Alcohol Use: No Hx Substance Use: Yes (cocaine "sometimes") - Immunization History Hx Tetanus Toxoid Vaccination: No Hx Influenza Vaccination: No Hx Pneumococcal Vaccination: No Review Of Systems Constitutional: Negative for: Fever, Chills ENT: Positive for: Throat Pain. Negative for: Throat Swelling Respiratory: Positive for: Cough. Negative for: Shortness of Breath Gastrointestinal: Negative for: Nausea, Vomiting, Diarrhea Physical Exam - Physical Exam Appears: Non-toxic, No Acute Distress, Other (unkempt) Skin: Warm, Dry, No Rash Head: Normacephalic Eye(s): bilateral: Normal Inspection, EOMI Ear(s): Bilateral: Normal Nose: Normal Oral Mucosa: Moist Tongue: Normal Appearing, No Swelling Lips: No Swelling Throat: Normal, No Erythema, No Exudate Neck: Normal ROM, Supple Chest: Symmetrical Cardiovascular: Rhythm Regular Respiratory: Normal Breath Sounds, No Accessory Muscle Use, No Rales, No Rhonchi, No Wheezing, Other (CTA, speaking full sentences; occassional dry cough) Extremity: Normal ROM Neurological/Psych: Oriented x3, Normal Speech Gait: Steady ED Course And Treatment O2 Sat by Pulse Oximetry: 95 (RA) Pulse Ox Interpretation: Normal - Other Rad CXR X-Ray: Viewed By Me, Read By Radiologist Interpretation: Accession No. : [id number]. Patient Name / ID : GUADALUPE POWERS / [id number]. Exam Date : 02/09/2019 10:20:21 ( Approved ). Study Comment : Sex / Age : M / 53Y. Creator : Yaritza Méndez MD. Dictator : Yaritza Méndez MD. Press Smith Helper : Wastewater Supervisor : Yaritza Méndez MD. Approver2 : Report Date : 02/09/2019 10:29:27. My Comment : . Date of service: 02/09/2019. HISTORY: Evaluate for pneumonia. COMPARISON: No prior. TECHNIQUE: Chest PA and lateral. FINDINGS: LINES AND TUBES: None. LUNG AND PLEURA: The lungs are hyperinflated and there is peribronchial thickening with chronic changes in both lungs. No focal consolidation. No pleural effusion or pneumothorax. HEART AND MEDIASTINUM: The heart is not enlarged. No aortic atherosclerotic calcifications present. The hilar and mediastinal contours are within normal limits. SKELETAL STRUCTURES: The bony structures are within normal limits for the patient's age. VISUALIZED UPPER ABDOMEN: Normal. OTHER FINDINGS: None. IMPRESSION: No active pulmonary disease. COPD. Progress Note: CXR ordered. Chart evaluated, h/o HIV noted. Pt denies. No evidence of infiltrate. Afebrile. No SOB or chest pain. Discussed concern for lack of follow up . Pt verbalizes understanding. Patient instructed to stop smoking. Patient given follow up instructions. Instructed to return to ER if symptoms worsen or new symptoms arise. Dsicussed signs and symptoms of concern. Disposition - Disposition Referrals: [facility] [Outside] eTd Powell MD [Staff Provider] - Disposition: HOME/ ROUTINE Disposition Time: 10:53 Condition: STABLE Additional Instructions: The most essential step in any treatment plan is to stop all smoking. It's the only way to keep COPD from getting worse which can eventually reduce your ability to breathe. 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 - Scribe Statement The provider has reviewed the documentation as recorded by the Scribe Megan Rivero All medical record entries made by the Polinaibrachel were at my direction and personally dictated by me. I have reviewed the chart and agree that the record accurately reflects my personal performance of the history, physical exam, medical decision making, and the department course for this patient. I have also personally directed, reviewed, and agree with the discharge instructions and disposition.
[2019-02-09 11:06] VITALS: BP 136/84; PULSE 70
[2019-02-09 12:44] VITALS: O2SAT 95
== END 2019-02-09 11:04 | disposition home or self-care (01) ==
LOC: C.ER 09:37
DX: J40 Bronchitis, not specified as acute or chronic (principal); Z87.891 Personal history of nicotine dependence